=== PATIENT | female | born 1945 | race Caucasian/White ===

== ENCOUNTER 2017-06-27 22:06 | Inpatient (IN) | payer MEDICARE ==
[~2017-06-27] VITALS: Ht 160 cm; Wt 73.0 kg
[~2017-06-27 22:06] MED LIST: AMIT25TA PO; CYAN25009 PO; LISI-167 PO; MELA3TAB15 PO
[2017-06-27] MEDS ORDERED: FAMOTIDINE 20 MG/2 ML ONE (22:54)
[2017-06-27] MEDS ORDERED: PANTOPRAZOLE 40 MG IV ONE (22:54)
[2017-06-27] MEDS ORDERED: FAMOTIDINE 20 MG/2 ML IVPush ONE (23:00)
[2017-06-27] MEDS ORDERED: PANTOPRAZOLE 40 MG IV IVPush ONE (23:00)
[2017-06-27] MEDS ORDERED: OMNIPAQUE 350 MG/ML, 100ML BOTTLE ONE (23:22)
[2017-06-28] MEDS ORDERED: BENZOCAINE AEROSOL SPRAY 20%, 60ML ONE (01:15)
[2017-06-28] MEDS ORDERED: MORPHINE SULFATE 4 MG/ML, 1ML ONE (01:15)
[2017-06-28] MEDS ORDERED: BENZOCAINE 20% SPRAY 0.5ML TP ONE (01:30)
[2017-06-28] MEDS ORDERED: MORPHINE SULFATE 4 MG/ML, 1ML IVPush ONE (01:30)
[2017-06-28] MEDS ORDERED: D5%-0.45NACL+KCL 20MEQ 1,000 ML IV SCH (02:00)
[2017-06-28] MEDS ORDERED: DOCUSATE 100 MG CAPSULE PO PRN (05:30)
[2017-06-28] MEDS ORDERED: BISACODYL 10 MG SUPP PR PRN (05:30)
[2017-06-28] MEDS ORDERED: PROMETHAZINE 25 MG/ML, 1ML IM PRN (05:30)
[2017-06-28] MEDS ORDERED: morphine SULFATE 10 MG/ML, 1ML IVPush PRN (05:30)
[2017-06-28] MEDS ORDERED: POLYETHYLENE GLYCOL 17 GM PACKET PO PRN (05:30)
[2017-06-28] MEDS ORDERED: OXYcodone IR 5MG TABLET PO PRN (05:30)
[2017-06-28] MEDS ORDERED: LABETALOL 5MG/ML, 20ML IVPush PRN (05:30)
[2017-06-28] MEDS ORDERED: ONDANSETRON 2MG/ML, 2ML IVPush PRN (05:30)
[2017-06-28] MEDS ORDERED: ACETAMINOPHEN 325 MG TABLET PO PRN (05:30)
[2017-06-28] MEDS ORDERED: hydrALAzine 20 MG/ML, 1ML IVPush PRN (05:30)
[2017-06-28] MEDS ORDERED: ONDANSETRON ODT 4 MG PO PRN (05:30)
[2017-06-28 06:29] LABS: BASOPHILS # (AUTO) 0.02 x10^3/uL (0-0.1); BASOPHILS % (AUTO) 0 % (0-1); EOSINOPHILS # (AUTO) 0.07 x10^3/uL (0-0.4); EOSINOPHILS % (AUTO) 1 % (1-7); LYMPHOCYTES # (AUTO) 0.65 x10^3/uL (1-3.4); LYMPHOCYTES % (AUTO) 9 % (22-44); MD NO; MEAN CORPUSCULAR HEMOGLOBIN 27.8 pg (27.0-34.8); MEAN CORPUSCULAR HGB CONC 33.3 g/dL (32.4-35.8); MEAN CORPUSCULAR VOLUME 83.5 fL (80-100); MEAN PLATELET VOLUME 6.5 fL (7.4-10.4); MONOCYTES # (AUTO) 0.71 x10^3/uL (0.2-0.8); MONOCYTES % (AUTO) 9 % (2-9); NEUTROPHILS # (AUTO) 6.13 x10^3/uL (1.8-6.8); NEUTROPHILS % (AUTO) 81 % (42-75); PLATELET COUNT 512 x10^3/uL (130-400); RED BLOOD COUNT 4.47 x10^6/uL (3.82-5.3); RED CELL DISTRIBUTION WIDTH 14.8 % (9.6-15.2)
[2017-06-28 06:31] LABS: ALBUMIN 1.5 g/dL (3.4-5.0); ANION GAP 7 mmol/L (5-15); CALCIUM 7.9 mg/dL (8.5-10.1); CHLORIDE 108 mmol/L (98-107)
[2017-06-28 06:45] LABS: ALANINE AMINOTRANSFERASE 13 U/L (12-78); ALKALINE PHOSPHATASE 62 U/L (45-117); BILIRUBIN,TOTAL 0.5 mg/dL (0.2-1.0); FREE T4 (FREE THYROXINE) 1.39 ng/dL (0.76-1.46); TOTAL PROTEIN 4.9 g/dL (6.4-8.2)
[2017-06-28 06:55] VITALS: BP 112/74
[2017-06-28] MEDS: D5%-0.9% NACL+KCL 20MEQ 1,000 ML IV SCH ×2 (08:00→16:41)
[2017-06-28] MEDS: FAMOTIDINE 20 MG/2 ML IVPush SCH ×2 (09:00→19:15)
[2017-06-28 12:55] LABS: HCT (SEDRATE) 37.9 % (34.6-47.8)
[2017-06-28 13:13] LABS: C-REACTIVE PROTEIN, QUANT 2.5 mg/dL (0.02-0.49)
[2017-06-28 13:57] VITALS: BP 110/71
[2017-06-28] MEDS: PANTOPRAZOLE 40 MG IV IVPush SCH (15:30)
[2017-06-28] MEDS: HEPARIN 5,000 UNITS/ML, 1ML SQ SCH (15:44)
[2017-06-28 16:21] LABS: MICROSCOPIC AUTO
[2017-06-28 16:26] LABS: CULTURE INDICATED? YES
[2017-06-28] MEDS: methylPREDNISolone SOD SUCC 40 MG/ML IV SCH (19:29)
[2017-06-28 19:39] VITALS: BP 123/78
[2017-06-29 02:20] VITALS: BP 118/80
[2017-06-29] MEDS: D5%-0.9% NACL+KCL 20MEQ 1,000 ML IV SCH ×2 (02:41→10:44)
[2017-06-29] MEDS: HEPARIN 5,000 UNITS/ML, 1ML SQ SCH ×2 (04:07→15:13)
[2017-06-29 05:13] LABS: CHOL/HDL RATIO 1.5; LDL/HDL RATIO 0.3 (0.5-3.0)
[2017-06-29 07:45] VITALS: BP 113/75
[2017-06-29] MEDS: PANTOPRAZOLE 40 MG IV IVPush SCH (07:59)
[2017-06-29] MEDS: methylPREDNISolone SOD SUCC 40 MG/ML IV SCH (08:00)
[2017-06-29] MEDS: FAMOTIDINE 20 MG/2 ML IVPush SCH ×2 (08:00→21:17)
[2017-06-29] MEDS ORDERED: methylPREDNISolone SOD SUCC 40 MG/ML IV SCH (09:00)
[2017-06-29 14:09] VITALS: BP 109/73
[2017-06-29 19:00] VITALS: BP 135/82
[2017-06-29] MEDS: D5%-0.45% NACL 1,000 ML IV SCH (22:09)
[2017-06-30 01:58] VITALS: BP 104/63
[2017-06-30] MEDS: HEPARIN 5,000 UNITS/ML, 1ML SQ SCH ×2 (03:26→15:56)
[2017-06-30 06:30] VITALS: BP 111/72
[2017-06-30] MEDS: PANTOPRAZOLE 40 MG IV IVPush SCH (07:50)
[2017-06-30] MEDS: methylPREDNISolone SOD SUCC 40 MG/ML IV SCH (09:42)
[2017-06-30] MEDS: FAMOTIDINE 20 MG/2 ML IVPush SCH ×2 (09:42→20:51)
[2017-06-30] MEDS: D5%-0.45% NACL 1,000 ML IV SCH ×2 (10:36→20:51)
[2017-06-30 14:00] VITALS: BP 132/86
[2017-06-30 19:06] VITALS: BP 129/79
[2017-07-01 01:35] VITALS: BP 120/77
[2017-07-01] MEDS: D5%-0.45% NACL 1,000 ML IV SCH ×2 (04:15→11:44)
[2017-07-01] MEDS: HEPARIN 5,000 UNITS/ML, 1ML SQ SCH ×2 (04:15→16:12)
[2017-07-01 06:44] VITALS: BP 135/76
[2017-07-01] MEDS: PANTOPRAZOLE 40 MG IV IVPush SCH (07:54)
[2017-07-01] MEDS: FAMOTIDINE 20 MG/2 ML IVPush SCH (07:54)
[2017-07-01 14:30] VITALS: BP 120/71
[2017-07-01] MEDS: FAMOTIDINE 20 MG TABLET PO SCH (19:51)
[2017-07-01 20:36] VITALS: BP 125/77
[2017-07-02] MEDS: D5%-0.45% NACL 1,000 ML IV SCH (00:33)
[2017-07-02 02:27] VITALS: BP 116/69
[2017-07-02] MEDS: HEPARIN 5,000 UNITS/ML, 1ML SQ SCH (04:47)
[2017-07-02] MEDS ORDERED: PANTOPROZOLE 40MG TABLET PO SCH (07:30)
[2017-07-02] MEDS: FAMOTIDINE 20 MG TABLET PO SCH (08:42)
[2017-07-02 08:54] VITALS: BP 131/81
[2017-07-02] MEDS ORDERED: PRED20TA PO (10:48)
[2017-07-02 11:37] LABS: ANION GAP 8 mmol/L (5-15); CALCIUM 8.3 mg/dL (8.5-10.1); CHLORIDE 111 mmol/L (98-107); CREATININE 0.82 mg/dL (0.55-1.02)
[2017-07-02] MEDS ORDERED: POTASSIUM CHLORIDE 20 MEQ PACKET PO ONE (12:30)
[2017-07-02] MEDS ORDERED: POTA20PA25 PO (12:40)
[2017-07-02 13:35] VITALS: BP_SYST 130; BP_DIAS 62; BP_DIAS 82
[2017-07-03] MEDS ORDERED: POTASSIUM CHLORIDE 20 MEQ PACKET PO SCH (08:00)
== END 2017-07-02 13:43 | disposition home or self-care (01) | DRG 385 ==
LOC: ED 23:44 → EDIP 06-28 01:31 → 4NOR 06-28 02:20
PROVIDERS: ADMIT Internal Medicine; ATTEND Internal Medicine
DX: K50.00 Crohn's disease of small intestine without complications (principal); E43 Unspecified severe protein-calorie malnutrition; K56.609 Unspecified intestinal obstruction, unspecified as to partial versus complete obstruction; I27.21 Secondary pulmonary arterial hypertension; B96.81 Helicobacter pylori [H. pylori] as the cause of diseases classified elsewhere; E53.8 Deficiency of other specified B group vitamins; I10 Essential (primary) hypertension; J45.909 Unspecified asthma, uncomplicated; Z85.028 Personal history of other malignant neoplasm of stomach; Z87.891 Personal history of nicotine dependence; Z90.49 Acquired absence of other specified parts of digestive tract; Z88.8 Allergy status to other drugs, medicaments and biological substances; Z68.28 Body mass index [BMI] 28.0-28.9, adult
CPT/HCPCS: 36415; 74018; 74177; 80048; 80053; 80061; 81001; 82728; 83036; 83540; 83550; 83605; 83735; 84439; 84443; 84630; 85025; 85651; 86140; 86480; 86701; 86702; 87040; 87077; 87086; 87147; 87186; 87340; 87517; 87535; 87806; 96374; 96375; J1644; Q9967; C9113; G0475; J2270; J2920; J3480; J7512; S0028

== ENCOUNTER 2017-10-05 01:26 | Inpatient (IN) | payer MEDICARE ==
[~2017-10-05] VITALS: Ht 157.5 cm; Wt 68.0 kg
[~2017-10-05 01:26] MED LIST changes: +POTA20PA25 PO; +PRED20TA PO
[2017-10-05 03:30] VITALS: BP 126/77
[2017-10-05] MEDS ORDERED: hydrALAzine 20 MG/ML, 1ML IVPush PRN (05:00)
[2017-10-05] MEDS ORDERED: ONDANSETRON 2MG/ML, 2ML IVPush PRN (05:00)
[2017-10-05] MEDS ORDERED: OXYcodone IR 5MG TABLET PO PRN (05:00)
[2017-10-05] MEDS ORDERED: ACETAMINOPHEN 325 MG TABLET PO PRN (05:00)
[2017-10-05] MEDS ORDERED: ONDANSETRON ODT 4 MG PO PRN (05:00)
[2017-10-05] MEDS ORDERED: LABETALOL 5MG/ML, 20ML IVPush PRN (05:00)
[2017-10-05] MEDS ORDERED: PROMETHAZINE 25 MG/ML, 1ML IM PRN (05:00)
[2017-10-05] MEDS ORDERED: morphine SULFATE 10 MG/ML, 1ML IVPush PRN (05:00)
[2017-10-05] MEDS ORDERED: methylPREDNISolone SOD SUCC 40 MG/ML IV SCH (05:30)
[2017-10-05] MEDS: D5%-0.9% NACL+KCL 20MEQ 1,000 ML IV SCH ×2 (05:41→17:16)
[2017-10-05 06:27] LABS: BASOPHILS # (AUTO) 0.03 x10^3/uL (0-0.1); BASOPHILS % (AUTO) 0 % (0-1); EOSINOPHILS # (AUTO) 0.03 x10^3/uL (0-0.4); EOSINOPHILS % (AUTO) 0 % (1-7); LYMPHOCYTES # (AUTO) 0.92 x10^3/uL (1-3.4); LYMPHOCYTES % (AUTO) 14 % (22-44); MD NO; MEAN CORPUSCULAR HEMOGLOBIN 27.9 pg (27.0-34.8); MEAN CORPUSCULAR HGB CONC 33.6 g/dL (32.4-35.8); MEAN CORPUSCULAR VOLUME 83.1 fL (80-100); MEAN PLATELET VOLUME 6.8 fL (7.4-10.4); MONOCYTES # (AUTO) 0.63 x10^3/uL (0.2-0.8); MONOCYTES % (AUTO) 9 % (2-9); NEUTROPHILS # (AUTO) 5.16 x10^3/uL (1.8-6.8); NEUTROPHILS % (AUTO) 76 % (42-75); PLATELET COUNT 432 x10^3/uL (130-400); RED BLOOD COUNT 4.66 x10^6/uL (3.82-5.3); RED CELL DISTRIBUTION WIDTH 16.4 % (9.6-15.2)
[2017-10-05 06:28] LABS: HCT (SEDRATE) 36.9 % (34.6-47.8)
[2017-10-05 06:36] LABS: INTERNATIONAL NORMALIZED RATIO 0.96 (0.93-1.1); PROTHROMBIN TIME 9.9 Seconds (9.6-11.5)
[2017-10-05 06:50] LABS: HEMOGLOBIN A1C 5.1 % (4.2-6.3)
[2017-10-05 06:54] LABS: ALKALINE PHOSPHATASE 75 U/L (45-117); BILIRUBIN,TOTAL 0.5 mg/dL (0.2-1.0); CHOL/HDL RATIO 1.7; CHOLESTEROL, TOTAL 138 mg/dL (140-239); FREE T4 (FREE THYROXINE) 1.38 ng/dL (0.76-1.46); HDL CHOL % 59 % (28-40); HDL CHOLESTEROL (DIRECT) 81 mg/dL (40-60); LDL CHOLESTEROL,CALCULATED 44 mg/dL (54-169); LDL/HDL RATIO 0.5 (0.5-3.0); TOTAL PROTEIN 5.6 g/dL (6.4-8.2); TRIGLYCERIDES 65 mg/dL (50-200); VLDL CHOLESTEROL 13 mg/dL (0-25)
[2017-10-05 06:55] LABS: ANION GAP 6 mmol/L (5-15); CALCIUM 8.4 mg/dL (8.5-10.1); CHLORIDE 105 mmol/L (98-107)
[2017-10-05 06:56] LABS: ALANINE AMINOTRANSFERASE 35 U/L (12-78)
[2017-10-05 06:57] LABS: ALBUMIN 2.2 g/dL (3.4-5.0)
[2017-10-05 07:08] VITALS: BP 120/78
[2017-10-05] MEDS: FAMOTIDINE 20 MG/2 ML IVPush SCH ×2 (08:39→22:02)
[2017-10-05 08:41] LABS: CULTURE INDICATED? NO; MICROSCOPIC AUTO
[2017-10-05 13:01] VITALS: BP 110/71
[2017-10-05] MEDS: methylPREDNISolone SOD SUCC 40 MG/ML IV SCH ×2 (17:23→22:08)
[2017-10-05] MEDS ORDERED: PICC FLUSH PROTOCOL XX SCH (17:30)
[2017-10-05] MEDS ORDERED: TPN PER PHARMACY MC PRN (17:30)
[2017-10-05 19:50] VITALS: BP 117/73
[2017-10-06] MEDS: D5%-0.9% NACL+KCL 20MEQ 1,000 ML IV SCH ×2 (01:32→05:00)
[2017-10-06 02:00] VITALS: BP 112/70
[2017-10-06 06:30] LABS: ALANINE AMINOTRANSFERASE 23 U/L (12-78); ALBUMIN 1.9 g/dL (3.4-5.0); ANION GAP 7 mmol/L (5-15); CALCIUM 8.1 mg/dL (8.5-10.1); CHLORIDE 115 mmol/L (98-107); CREATININE 0.59 mg/dL (0.55-1.02); TRIGLYCERIDES 73 mg/dL (50-200)
[2017-10-06 06:34] LABS: ALKALINE PHOSPHATASE 61 U/L (45-117); BILIRUBIN,TOTAL 0.5 mg/dL (0.2-1.0); TOTAL PROTEIN 4.9 g/dL (6.4-8.2)
[2017-10-06 07:14] VITALS: BP 122/75
[2017-10-06] MEDS: FAMOTIDINE 20 MG/2 ML IVPush SCH (08:33)
[2017-10-06] MEDS: methylPREDNISolone SOD SUCC 40 MG/ML IV SCH ×3 (08:33→20:50)
[2017-10-06] MEDS ORDERED: NS + 20MEQ KCL 1,000 ML IV SCH (10:00)
[2017-10-06 12:39] VITALS: BP 113/68
[2017-10-06] MEDS ORDERED: DEXTROSE 50%, 50ML SYRINGE IVPush PRN (17:00)
[2017-10-06] MEDS ORDERED: AMINO ACID 10% IV SCH (17:00)
[2017-10-06] MEDS ORDERED: DEXTROSE 10% 500 ML IV PRN (17:00)
[2017-10-06] MEDS ORDERED: DEXTROSE 70% IV SCH (17:00)
[2017-10-06] MEDS ORDERED: FAT EMUL IV SCH (17:00)
[2017-10-06] MEDS ORDERED: [UNRECOGNIZED DRUG - OTHER] IV SCH (17:00)
[2017-10-06] MEDS ORDERED: SMOF TPN IV SCH (17:00)
[2017-10-06] MEDS: SODIUM CHLORIDE 0.9% 1,000 ML IV SCH (17:10)
[2017-10-06] MEDS: FILTER, DISP 1.2 MICRON FOR TPN/PVN IV PRN (17:10)
[2017-10-06 20:00] VITALS: BP 134/83
[2017-10-06] MEDS: INSULIN REGULAR LOW DOSE Q6H X 48HRS SQ-INSULIN SCH (23:00)
[2017-10-07 04:42] VITALS: BP 134/76
[2017-10-07] MEDS: INSULIN REGULAR LOW DOSE Q6H X 48HRS SQ-INSULIN SCH ×4 (05:00→23:00)
[2017-10-07] MEDS: SODIUM CHLORIDE 0.9% 1,000 ML IV SCH ×2 (05:07→16:34)
[2017-10-07 05:34] LABS: ALBUMIN 1.8 g/dL (3.4-5.0); ANION GAP 7 mmol/L (5-15); CALCIUM 8.2 mg/dL (8.5-10.1); CHLORIDE 114 mmol/L (98-107)
[2017-10-07 05:39] LABS: ALANINE AMINOTRANSFERASE 19 U/L (12-78); ALKALINE PHOSPHATASE 58 U/L (45-117); BILIRUBIN,TOTAL 0.3 mg/dL (0.2-1.0); CREATININE 0.44 mg/dL (0.55-1.02); TOTAL PROTEIN 4.8 g/dL (6.4-8.2)
[2017-10-07 07:45] VITALS: BP 131/74
[2017-10-07] MEDS: methylPREDNISolone SOD SUCC 40 MG/ML IV SCH ×3 (10:04→21:04)
[2017-10-07 13:30] VITALS: BP 124/75
[2017-10-07] MEDS: FILTER, DISP 1.2 MICRON FOR TPN/PVN IV PRN (16:49)
[2017-10-07] MEDS ORDERED: [UNRECOGNIZED DRUG - OTHER] IV SCH (17:00)
[2017-10-07] MEDS ORDERED: SMOF TPN IV SCH (17:00)
[2017-10-07] MEDS ORDERED: AMINO ACID 10% IV SCH (17:00)
[2017-10-07] MEDS ORDERED: FAT EMUL IV SCH (17:00)
[2017-10-07] MEDS ORDERED: DEXTROSE 70% IV SCH (17:00)
[2017-10-07 19:08] VITALS: BP 123/78
[2017-10-08 01:54] VITALS: BP 123/82
[2017-10-08] MEDS: INSULIN REGULAR LOW DOSE Q6H X 48HRS SQ-INSULIN SCH ×3 (04:58→17:47)
[2017-10-08 05:45] LABS: CHLORIDE 112 mmol/L (98-107)
[2017-10-08 05:53] LABS: ANION GAP 6 mmol/L (5-15); CALCIUM 8.3 mg/dL (8.5-10.1); CREATININE 0.32 mg/dL (0.55-1.02)
[2017-10-08 06:56] VITALS: BP 137/85
[2017-10-08] MEDS: methylPREDNISolone SOD SUCC 40 MG/ML IV SCH ×3 (09:57→20:48)
[2017-10-08 12:57] VITALS: BP 121/83
[2017-10-08] MEDS: SODIUM CHLORIDE 0.9% 1,000 ML IV SCH (15:18)
[2017-10-08] MEDS ORDERED: FILTER, DISP 1.2 MICRON FOR TPN/PVN IV PRN (17:00)
[2017-10-08] MEDS ORDERED: FAT EMUL IV SCH (17:00)
[2017-10-08] MEDS ORDERED: AMINO ACID 10% IV SCH (17:00)
[2017-10-08] MEDS ORDERED: [UNRECOGNIZED DRUG - OTHER] IV SCH (17:00)
[2017-10-08] MEDS ORDERED: DEXTROSE 70% IV SCH (17:00)
[2017-10-08] MEDS ORDERED: SMOF TPN IV SCH (17:00)
[2017-10-08 19:35] VITALS: BP 145/92
[2017-10-09 02:00] VITALS: BP 121/78
[2017-10-09] MEDS: INSULIN REGULAR LOW DOSE QDAY SQ-INSULIN SCH (05:00)
[2017-10-09 06:03] LABS: BASOPHILS # (AUTO) 0.01 x10^3/uL (0-0.1); BASOPHILS % (AUTO) 0 % (0-1); EOSINOPHILS # (AUTO) 0.01 x10^3/uL (0-0.4); EOSINOPHILS % (AUTO) 0 % (1-7); LYMPHOCYTES # (AUTO) 0.74 x10^3/uL (1-3.4); LYMPHOCYTES % (AUTO) 16 % (22-44); MD NO; MEAN CORPUSCULAR HEMOGLOBIN 28.2 pg (27.0-34.8); MEAN CORPUSCULAR HGB CONC 33.4 g/dL (32.4-35.8); MEAN CORPUSCULAR VOLUME 84.5 fL (80-100); MONOCYTES # (AUTO) 0.57 x10^3/uL (0.2-0.8); MONOCYTES % (AUTO) 12 % (2-9); NEUTROPHILS # (AUTO) 3.34 x10^3/uL (1.8-6.8); NEUTROPHILS % (AUTO) 71 % (42-75); PLATELET COUNT 348 x10^3/uL (130-400); RED BLOOD COUNT 3.97 x10^6/uL (3.82-5.3); RED CELL DISTRIBUTION WIDTH 15.2 % (9.6-15.2)
[2017-10-09 06:22] LABS: CHLORIDE 112 mmol/L (98-107)
[2017-10-09 06:40] LABS: ALANINE AMINOTRANSFERASE 17 U/L (12-78); ALBUMIN 1.9 g/dL (3.4-5.0); ALKALINE PHOSPHATASE 59 U/L (45-117); ANION GAP 7 mmol/L (5-15); BILIRUBIN,TOTAL 0.2 mg/dL (0.2-1.0); CALCIUM 8.2 mg/dL (8.5-10.1); CREATININE 0.43 mg/dL (0.55-1.02); TOTAL PROTEIN 4.9 g/dL (6.4-8.2)
[2017-10-09 06:59] VITALS: BP 156/84
[2017-10-09] MEDS: methylPREDNISolone SOD SUCC 40 MG/ML IV SCH ×3 (09:12→21:49)
[2017-10-09 13:14] VITALS: BP 131/80
[2017-10-09] MEDS: SODIUM CHLORIDE 0.9% 1,000 ML IV SCH (15:30)
[2017-10-09] MEDS ORDERED: AMINO ACID 10% IV SCH (17:00)
[2017-10-09] MEDS ORDERED: DEXTROSE 70% IV SCH (17:00)
[2017-10-09] MEDS ORDERED: FAT EMUL IV SCH (17:00)
[2017-10-09] MEDS ORDERED: SMOF TPN IV SCH (17:00)
[2017-10-09] MEDS ORDERED: [UNRECOGNIZED DRUG - OTHER] IV SCH (17:00)
[2017-10-09] MEDS: FILTER, DISP 1.2 MICRON FOR TPN/PVN IV PRN (17:23)
[2017-10-09 18:53] VITALS: BP 130/85
[2017-10-10 02:20] VITALS: BP 113/72
[2017-10-10 07:25] LABS: BASOPHILS # (AUTO) 0.01 x10^3/uL (0-0.1); BASOPHILS % (AUTO) 0 % (0-1); EOSINOPHILS # (AUTO) 0.02 x10^3/uL (0-0.4); EOSINOPHILS % (AUTO) 0 % (1-7); LYMPHOCYTES # (AUTO) 0.72 x10^3/uL (1-3.4); LYMPHOCYTES % (AUTO) 13 % (22-44); MD NO; MEAN CORPUSCULAR HEMOGLOBIN 28.1 pg (27.0-34.8); MEAN PLATELET VOLUME 6.9 fL (7.4-10.4); MONOCYTES # (AUTO) 0.44 x10^3/uL (0.2-0.8); MONOCYTES % (AUTO) 8 % (2-9); NEUTROPHILS # (AUTO) 4.53 x10^3/uL (1.8-6.8); NEUTROPHILS % (AUTO) 79 % (42-75); PLATELET COUNT 390 x10^3/uL (130-400); RED BLOOD COUNT 4.34 x10^6/uL (3.82-5.3); RED CELL DISTRIBUTION WIDTH 15.2 % (9.6-15.2)
[2017-10-10 07:38] LABS: CALCIUM 8.5 mg/dL (8.5-10.1); CHLORIDE 111 mmol/L (98-107)
[2017-10-10 07:44] LABS: ALANINE AMINOTRANSFERASE 19 U/L (12-78); ALBUMIN 2.1 g/dL (3.4-5.0); ALKALINE PHOSPHATASE 65 U/L (45-117); ANION GAP 7 mmol/L (5-15); BILIRUBIN,TOTAL 0.2 mg/dL (0.2-1.0); CREATININE 0.48 mg/dL (0.55-1.02); TOTAL PROTEIN 5.4 g/dL (6.4-8.2); TRIGLYCERIDES 203 mg/dL (50-200)
[2017-10-10] MEDS: INSULIN REGULAR LOW DOSE QDAY SQ-INSULIN SCH (07:51)
[2017-10-10 09:00] VITALS: BP 128/74
[2017-10-10] MEDS: methylPREDNISolone SOD SUCC 40 MG/ML IV SCH (09:50)
[2017-10-10 14:01] VITALS: BP 132/91
[2017-10-10] MEDS: SODIUM CHLORIDE 0.9% 1,000 ML IV SCH (14:55)
[2017-10-10] MEDS ORDERED: SMOF TPN IV SCH ×2 (17:00)
[2017-10-10] MEDS ORDERED: AMINO ACID 10% IV SCH ×2 (17:00)
[2017-10-10] MEDS ORDERED: FAT EMUL IV SCH ×2 (17:00)
[2017-10-10] MEDS ORDERED: [UNRECOGNIZED DRUG - OTHER] IV SCH ×2 (17:00)
[2017-10-10] MEDS ORDERED: DEXTROSE 70% IV SCH ×2 (17:00)
[2017-10-10] MEDS: FILTER, DISP 1.2 MICRON FOR TPN/PVN IV PRN (17:22)
[2017-10-10 19:09] VITALS: BP 131/81
[2017-10-10] MEDS ORDERED: methylPREDNISolone SOD SUCC 40 MG/ML IV SCH (21:00)
[2017-10-11 02:38] VITALS: BP 116/65
[2017-10-11] MEDS: INSULIN REGULAR LOW DOSE QDAY SQ-INSULIN SCH (05:00)
[2017-10-11 05:15] LABS: BASOPHILS # (AUTO) 0.02 x10^3/uL (0-0.1); BASOPHILS % (AUTO) 0 % (0-1); EOSINOPHILS % (AUTO) 0 % (1-7); LYMPHOCYTES % (AUTO) 12 % (22-44); MD NO; MEAN CORPUSCULAR HEMOGLOBIN 27.8 pg (27.0-34.8); MEAN CORPUSCULAR HGB CONC 32.9 g/dL (32.4-35.8); MEAN CORPUSCULAR VOLUME 84.6 fL (80-100); MONOCYTES # (AUTO) 0.34 x10^3/uL (0.2-0.8); MONOCYTES % (AUTO) 6 % (2-9); NEUTROPHILS # (AUTO) 4.85 x10^3/uL (1.8-6.8); NEUTROPHILS % (AUTO) 82 % (42-75); PLATELET COUNT 399 x10^3/uL (130-400); RED BLOOD COUNT 4.52 x10^6/uL (3.82-5.3); RED CELL DISTRIBUTION WIDTH 15.3 % (9.6-15.2)
[2017-10-11 05:19] LABS: ALANINE AMINOTRANSFERASE 37 U/L (12-78); ALBUMIN 2.2 g/dL (3.4-5.0); ANION GAP 4 mmol/L (5-15); CALCIUM 8.8 mg/dL (8.5-10.1); CHLORIDE 112 mmol/L (98-107); CREATININE 0.53 mg/dL (0.55-1.02)
[2017-10-11 05:21] LABS: ALKALINE PHOSPHATASE 71 U/L (45-117); BILIRUBIN,TOTAL 0.2 mg/dL (0.2-1.0); TOTAL PROTEIN 5.7 g/dL (6.4-8.2)
[2017-10-11] MEDS: methylPREDNISolone SOD SUCC 40 MG/ML IV SCH (09:29)
[2017-10-11 14:03] VITALS: BP 146/94
[2017-10-11] MEDS: SODIUM CHLORIDE 0.9% 1,000 ML IV SCH (14:39)
[2017-10-11] MEDS ORDERED: SMOF TPN IV SCH (17:00)
[2017-10-11] MEDS ORDERED: AMINO ACID 10% IV SCH (17:00)
[2017-10-11] MEDS ORDERED: [UNRECOGNIZED DRUG - OTHER] IV SCH (17:00)
[2017-10-11] MEDS ORDERED: FAT EMUL IV SCH (17:00)
[2017-10-11] MEDS ORDERED: DEXTROSE 70% IV SCH (17:00)
[2017-10-11 20:02] VITALS: BP 130/83
[2017-10-11] MEDS ORDERED: CALCIUM CARBONATE 500 MG TAB.CHEW PO PRN (21:30)
[2017-10-12 04:28] VITALS: BP 123/75
[2017-10-12] MEDS: INSULIN REGULAR LOW DOSE QDAY SQ-INSULIN SCH (05:30)
[2017-10-12 06:29] LABS: ANION GAP 7 mmol/L (5-15); CALCIUM 8.8 mg/dL (8.5-10.1); CHLORIDE 108 mmol/L (98-107); CREATININE 0.59 mg/dL (0.55-1.02)
[2017-10-12 07:15] VITALS: BP 111/72
[2017-10-12] MEDS: methylPREDNISolone SOD SUCC 40 MG/ML IV SCH (08:21)
[2017-10-12 08:36] LABS: BASOPHILS # (AUTO) 0.02 x10^3/uL (0-0.1); BASOPHILS % (AUTO) 0 % (0-1); EOSINOPHILS # (AUTO) 0.06 x10^3/uL (0-0.4); EOSINOPHILS % (AUTO) 1 % (1-7); LYMPHOCYTES # (AUTO) 0.89 x10^3/uL (1-3.4); LYMPHOCYTES % (AUTO) 11 % (22-44); MD NO; MEAN CORPUSCULAR HEMOGLOBIN 27.5 pg (27.0-34.8); MEAN CORPUSCULAR HGB CONC 32.5 g/dL (32.4-35.8); MEAN CORPUSCULAR VOLUME 84.4 fL (80-100); MEAN PLATELET VOLUME 6.8 fL (7.4-10.4); MONOCYTES # (AUTO) 0.77 x10^3/uL (0.2-0.8); MONOCYTES % (AUTO) 10 % (2-9); NEUTROPHILS # (AUTO) 6.22 x10^3/uL (1.8-6.8); NEUTROPHILS % (AUTO) 78 % (42-75); PLATELET COUNT 377 x10^3/uL (130-400); RED BLOOD COUNT 4.38 x10^6/uL (3.82-5.3); RED CELL DISTRIBUTION WIDTH 15.4 % (9.6-15.2)
[2017-10-12 08:47] LABS: ALANINE AMINOTRANSFERASE 69 U/L (12-78); ALBUMIN 2.1 g/dL (3.4-5.0); ANION GAP 8 mmol/L (5-15); CALCIUM 8.6 mg/dL (8.5-10.1); CHLORIDE 106 mmol/L (98-107); CREATININE 0.57 mg/dL (0.55-1.02)
[2017-10-12 08:49] LABS: ALKALINE PHOSPHATASE 72 U/L (45-117); BILIRUBIN,TOTAL 0.3 mg/dL (0.2-1.0); TOTAL PROTEIN 5.2 g/dL (6.4-8.2)
[2017-10-12 13:38] VITALS: BP 112/73
[2017-10-12] MEDS: SODIUM CHLORIDE 0.9% 1,000 ML IV SCH (14:54)
[2017-10-12] MEDS ORDERED: MORP10VI10 IVPush (15:04)
[2017-10-12] MEDS ORDERED: METH40VI IV (15:04)
[2017-10-12] MEDS ORDERED: Tpn Per Pharmacy MC (15:04)
[2017-10-12] MEDS ORDERED: ONDA4VIA8 IVPush (15:04)
[2017-10-12] MEDS ORDERED: AMINO ACID 10% IV SCH (17:00)
[2017-10-12] MEDS ORDERED: DEXTROSE 70% IV SCH (17:00)
[2017-10-12] MEDS ORDERED: FILTER, DISP 1.2 MICRON FOR TPN/PVN IV PRN (17:00)
[2017-10-12] MEDS ORDERED: [UNRECOGNIZED DRUG - OTHER] IV SCH (17:00)
[2017-10-12] MEDS ORDERED: SMOF TPN IV SCH (17:00)
[2017-10-12] MEDS ORDERED: FAT EMUL IV SCH (17:00)
[2017-10-13] MEDS ORDERED: methylPREDNISolone SOD SUCC 40 MG/ML IV SCH (09:00)
== END 2017-10-12 19:00 | DRG 385 ==
LOC: 4NOR 03:19
PROVIDERS: ADMIT Internal Medicine; ATTEND Internal Medicine
PROC: 02HV33Z Insertion of Infusion Device into Superior Vena Cava, Percutaneous Approach (ICD-10-PCS; principal; 2017-10-05)
PROC: B548ZZA Ultrasonography of Superior Vena Cava, Guidance (ICD-10-PCS; 2017-10-05)
DX: K50.012 Crohn's disease of small intestine with intestinal obstruction (principal); E43 Unspecified severe protein-calorie malnutrition; I10 Essential (primary) hypertension; J44.9 Chronic obstructive pulmonary disease, unspecified; K21.9 Gastro-esophageal reflux disease without esophagitis; R74.8 Abnormal levels of other serum enzymes; K52.9 Noninfective gastroenteritis and colitis, unspecified; Z90.49 Acquired absence of other specified parts of digestive tract; Z91.041 Radiographic dye allergy status; Z79.52 Long term (current) use of systemic steroids; Z85.028 Personal history of other malignant neoplasm of stomach; Z87.891 Personal history of nicotine dependence; Z68.27 Body mass index [BMI] 27.0-27.9, adult
CPT/HCPCS: 36415; 36569; 76937; 77001; 80048; 80053; 80061; 81001; 82962; 83036; 83735; 84100; 84134; 84439; 84443; 84478; 85025; 85610; 85651; 86140; 87040; 96374; G0378; J0610; J3475; J3480; C1751; J2920; J3420; J7030; S0028

== ENCOUNTER 2017-10-19 09:56 | Inpatient (IN) | payer MEDICARE ==
[~2017-10-19] VITALS: Ht 160 cm; Wt 65.5 kg
[~2017-10-19 09:56] MED LIST changes: +BUPIVACAINE/PF 0.5% ONE; +METH40VI IV; +MORP10VI10 IVPush; +ONDA4VIA8 IVPush; +Tpn Per Pharmacy MC; +cloniDINE/PF 100 MCG/ML, 10 ML ONE
[2017-10-19 10:32] VITALS: BP 118/83
[2017-10-19] MEDS ORDERED: LACTATED RINGERS 1,000 ML IV SCH (10:38)
[2017-10-19] MEDS ORDERED: remicade (10:41)
[2017-10-19] MEDS ORDERED: ONDANSETRON ODT 8 MG PO ONE (11:00)
[2017-10-19] MEDS ORDERED: GABAPENTIN 300 MG CAPSULE PO ONE (11:00)
[2017-10-19] MEDS ORDERED: PLEASE ENTER HEIGHT AND WEIGHT MC SCH (11:00)
[2017-10-19] MEDS ORDERED: ACETAMINOPHEN 500 MG TABLET PO ONE (11:00)
[2017-10-19] MEDS ORDERED: MIDAZOLAM 1 MG/ML, 2ML ONE (11:08)
[2017-10-19] MEDS ORDERED: FENTANYL PF 100 MCG/2ML ONE ×2 (11:08→13:47)
[2017-10-19] MEDS ORDERED: DIPHENHYDRAMINE 50 MG/ML, 1ML IVPush PRN ×2 (11:30→16:30)
[2017-10-19] MEDS ORDERED: EPHEDRINE 50 MG/ML, 1ML IM PRN (11:30)
[2017-10-19] MEDS ORDERED: PROMETHAZINE 12.5 MG SUPP PR PRN (11:30)
[2017-10-19] MEDS ORDERED: LABETALOL 5MG/ML, 20ML IV PRN (11:30)
[2017-10-19] MEDS ORDERED: MEPERIDINE/PF 25MG/0.5ML IVPush PRN (11:30)
[2017-10-19] MEDS ORDERED: CEFAZOLIN 1,000 MG ONE (11:45)
[2017-10-19] MEDS ORDERED: EPHEDRINE 50 MG/ML, 1ML ONE (11:45)
[2017-10-19] MEDS ORDERED: PROPOFOL 10 MG/ML, 20ML ONE (11:45)
[2017-10-19] MEDS ORDERED: PHENYLEPHRINE 10 MG/ML ONE (11:45)
[2017-10-19] MEDS ORDERED: DEXAMETHASONE 4 MG/ML, 5ML ONE (11:45)
[2017-10-19] MEDS ORDERED: ONDANSETRON 2MG/ML, 2ML ONE (11:45)
[2017-10-19] MEDS ORDERED: ROCURONIUM 10 MG/ML,10ML ONE (11:45)
[2017-10-19] MEDS ORDERED: SUGAMMADEX 200 MG/2 ML IVPush ONE (11:45)
[2017-10-19] MEDS ORDERED: ESMOLOL 100 MG/10 ML ONE (11:45)
[2017-10-19] MEDS: FENTANYL PF 100 MCG/2ML IV PRN ×2 (14:00→14:05)
[2017-10-19] MEDS ORDERED: OXYcodone 5 MG/5 ML ORAL.SOL UDC ONE (14:05)
[2017-10-19] MEDS ORDERED: OXYcodone 5 MG/5 ML ORAL.SOL UDC PO PRN (14:30)
[2017-10-19 15:45] VITALS: BP 117/71
[2017-10-19] MEDS ORDERED: LORazepam 1MG TABLET PO PRN (16:30)
[2017-10-19] MEDS ORDERED: ACETAMINOPHEN 500 MG TABLET PO SCH (16:30)
[2017-10-19] MEDS ORDERED: SCOPOLAMINE PATCH, 1.5MG PATCH.TD72 TD PRN (16:30)
[2017-10-19] MEDS ORDERED: HYDROmorphone 1 MG/ML, 1ML IVPush PRN (16:30)
[2017-10-19] MEDS ORDERED: LORazepam 2 MG/ML, 1ML IVPush PRN (16:30)
[2017-10-19] MEDS ORDERED: DEXAMETHASONE 4 MG/ML, 1ML IVPush PRN (16:30)
[2017-10-19] MEDS ORDERED: D5%-0.45NACL+KCL 20MEQ 1,000 ML IV SCH (16:30)
[2017-10-19] MEDS: ACETAMINOPHEN 100 ML IVPB SCH (18:20)
[2017-10-19 21:02] VITALS: BP 103/70
[2017-10-19] MEDS: IBUPROFEN 800 MG TABLET PO SCH (21:30)
[2017-10-20 00:40] VITALS: BP 90/51
[2017-10-20] MEDS: ACETAMINOPHEN 100 ML IVPB SCH ×3 (02:25→14:22)
[2017-10-20 03:57] LABS: BASOPHILS % (AUTO) 0 % (0-1); EOSINOPHILS % (AUTO) 0 % (1-7); LYMPHOCYTES # (AUTO) 0.62 x10^3/uL (1-3.4); LYMPHOCYTES % (AUTO) 5 % (22-44); MD NO; MEAN CORPUSCULAR HEMOGLOBIN 27.2 pg (27.0-34.8); MEAN CORPUSCULAR HGB CONC 32.6 g/dL (32.4-35.8); MEAN CORPUSCULAR VOLUME 83.4 fL (80-100); MEAN PLATELET VOLUME 8.3 fL (7.4-10.4); MONOCYTES # (AUTO) 0.75 x10^3/uL (0.2-0.8); MONOCYTES % (AUTO) 6 % (2-9); NEUTROPHILS # (AUTO) 11.33 x10^3/uL (1.8-6.8); NEUTROPHILS % (AUTO) 89 % (42-75); PLATELET COUNT 343 x10^3/uL (130-400); RED BLOOD COUNT 4.18 x10^6/uL (3.82-5.3)
[2017-10-20 04:21] VITALS: BP 100/65
[2017-10-20] MEDS: IBUPROFEN 800 MG TABLET PO SCH ×3 (08:59→20:41)
[2017-10-20 09:03] VITALS: BP 115/74
[2017-10-20] MEDS: HEPARIN 5,000 UNITS/ML, 1ML SQ SCH ×2 (11:56→20:41)
[2017-10-20 14:30] VITALS: BP 97/61
[2017-10-20] MEDS ORDERED: ACETAMINOPHEN 500 MG TABLET PO SCH (17:30)
[2017-10-20] MEDS: OXYcodone IR 5MG TABLET PO PRN (18:50)
[2017-10-20] MEDS: CALCIUM CARBONATE 500 MG TAB.CHEW PO PRN (20:40)
[2017-10-20] MEDS ORDERED: HYDROmorphone 2 MG/ML, 1ML ONE (20:57)
[2017-10-20 21:13] VITALS: BP 98/59
[2017-10-21 03:14] VITALS: BP 109/75
[2017-10-21] MEDS: HEPARIN 5,000 UNITS/ML, 1ML SQ SCH ×3 (03:30→20:50)
[2017-10-21 07:33] LABS: BASOPHILS # (AUTO) 0.04 x10^3/uL (0-0.1); BASOPHILS % (AUTO) 0 % (0-1); EOSINOPHILS # (AUTO) 0.04 x10^3/uL (0-0.4); EOSINOPHILS % (AUTO) 0 % (1-7); LYMPHOCYTES % (AUTO) 6 % (22-44); MD NO; MEAN CORPUSCULAR HEMOGLOBIN 27.3 pg (27.0-34.8); MEAN CORPUSCULAR HGB CONC 32.4 g/dL (32.4-35.8); MEAN CORPUSCULAR VOLUME 84.4 fL (80-100); MEAN PLATELET VOLUME 8.3 fL (7.4-10.4); MONOCYTES % (AUTO) 6 % (2-9); NEUTROPHILS # (AUTO) 8.95 x10^3/uL (1.8-6.8); NEUTROPHILS % (AUTO) 87 % (42-75); PLATELET COUNT 333 x10^3/uL (130-400); RED CELL DISTRIBUTION WIDTH 15.1 % (9.6-15.2)
[2017-10-21 07:39] LABS: ANION GAP 9 mmol/L (5-15); CALCIUM 9.7 mg/dL (8.5-10.1); CHLORIDE 103 mmol/L (98-107); CREATININE 0.79 mg/dL (0.55-1.02)
[2017-10-21 08:04] VITALS: BP 110/63
[2017-10-21] MEDS: IBUPROFEN 800 MG TABLET PO SCH ×3 (08:42→23:36)
[2017-10-21] MEDS: OXYcodone IR 5MG TABLET PO PRN ×3 (08:46→19:04)
[2017-10-21 13:21] VITALS: BP 111/69
[2017-10-21 21:34] VITALS: BP 100/54
[2017-10-22 01:05] VITALS: BP_SYST 96; BP_SYST 98; BP_DIAS 58; BP_DIAS 60
[2017-10-22] MEDS: HEPARIN 5,000 UNITS/ML, 1ML SQ SCH ×3 (04:41→19:18)
[2017-10-22] MEDS ORDERED: ONDANSETRON ODT 4 MG PO ONE (05:00)
[2017-10-22 06:25] LABS: BASOPHILS # (AUTO) 0.02 x10^3/uL (0-0.1); BASOPHILS % (AUTO) 0 % (0-1); EOSINOPHILS # (AUTO) 0.09 x10^3/uL (0-0.4); EOSINOPHILS % (AUTO) 1 % (1-7); LYMPHOCYTES # (AUTO) 0.43 x10^3/uL (1-3.4); LYMPHOCYTES % (AUTO) 4 % (22-44); MD NO; MEAN CORPUSCULAR HEMOGLOBIN 28.3 pg (27.0-34.8); MEAN CORPUSCULAR VOLUME 83.4 fL (80-100); MONOCYTES # (AUTO) 0.55 x10^3/uL (0.2-0.8); MONOCYTES % (AUTO) 5 % (2-9); NEUTROPHILS # (AUTO) 9.22 x10^3/uL (1.8-6.8); NEUTROPHILS % (AUTO) 90 % (42-75); PLATELET COUNT 352 x10^3/uL (130-400); RED BLOOD COUNT 3.94 x10^6/uL (3.82-5.3); RED CELL DISTRIBUTION WIDTH 14.9 % (9.6-15.2)
[2017-10-22 06:34] LABS: ANION GAP 10 mmol/L (5-15); CHLORIDE 102 mmol/L (98-107); CREATININE 1.04 mg/dL (0.55-1.02)
[2017-10-22 07:37] VITALS: BP 107/71
[2017-10-22] MEDS: IBUPROFEN 800 MG TABLET PO SCH ×3 (08:02→22:09)
[2017-10-22] MEDS: OXYcodone IR 5MG TABLET PO PRN ×5 (08:02→23:49)
[2017-10-22 14:57] VITALS: BP 95/68
[2017-10-22 20:19] VITALS: BP 98/64
[2017-10-22] MEDS: CALCIUM CARBONATE 500 MG TAB.CHEW PO PRN (22:11)
[2017-10-23 01:54] VITALS: BP 98/58
[2017-10-23] MEDS: ONDANSETRON 2MG/ML, 2ML IV PRN ×2 (03:21→13:00)
[2017-10-23] MEDS ORDERED: SODIUM CHLORIDE 0.9%, 500ML IVBOLUS ONE (03:30)
[2017-10-23] MEDS: SODIUM CHLORIDE 0.9% 1,000 ML IV SCH ×3 (03:49→22:41)
[2017-10-23] MEDS: HEPARIN 5,000 UNITS/ML, 1ML SQ SCH ×3 (04:08→20:37)
[2017-10-23 05:26] LABS: BASOPHILS # (AUTO) 0.03 x10^3/uL (0-0.1); BASOPHILS % (AUTO) 0 % (0-1); EOSINOPHILS # (AUTO) 0.09 x10^3/uL (0-0.4); EOSINOPHILS % (AUTO) 1 % (1-7); LYMPHOCYTES # (AUTO) 0.41 x10^3/uL (1-3.4); LYMPHOCYTES % (AUTO) 4 % (22-44); MD NO; MEAN CORPUSCULAR HEMOGLOBIN 27.9 pg (27.0-34.8); MEAN CORPUSCULAR HGB CONC 33.9 g/dL (32.4-35.8); MEAN CORPUSCULAR VOLUME 82.3 fL (80-100); MEAN PLATELET VOLUME 7.7 fL (7.4-10.4); MONOCYTES # (AUTO) 0.58 x10^3/uL (0.2-0.8); MONOCYTES % (AUTO) 6 % (2-9); NEUTROPHILS # (AUTO) 8.99 x10^3/uL (1.8-6.8); NEUTROPHILS % (AUTO) 89 % (42-75); PLATELET COUNT 387 x10^3/uL (130-400); RED BLOOD COUNT 3.81 x10^6/uL (3.82-5.3); RED CELL DISTRIBUTION WIDTH 14.7 % (9.6-15.2)
[2017-10-23 05:38] LABS: CHLORIDE 99 mmol/L (98-107)
[2017-10-23 05:47] LABS: ANION GAP 11 mmol/L (5-15); CALCIUM 9.6 mg/dL (8.5-10.1)
[2017-10-23 07:35] VITALS: BP 92/60
[2017-10-23] MEDS: IBUPROFEN 800 MG TABLET PO SCH ×3 (09:04→20:37)
[2017-10-23] MEDS: OXYcodone IR 5MG TABLET PO PRN (12:20)
[2017-10-23 14:00] VITALS: BP 100/58
[2017-10-23] MEDS: CALCIUM CARBONATE 500 MG TAB.CHEW PO PRN ×2 (15:46→22:40)
[2017-10-23 20:27] VITALS: BP 100/62
[2017-10-24 03:04] VITALS: BP 106/56
[2017-10-24 05:12] LABS: ANION GAP 8 mmol/L (5-15); CALCIUM 9.1 mg/dL (8.5-10.1); CHLORIDE 104 mmol/L (98-107)
[2017-10-24 05:13] LABS: CREATININE 1.44 mg/dL (0.55-1.02)
[2017-10-24] MEDS: HEPARIN 5,000 UNITS/ML, 1ML SQ SCH ×3 (05:25→21:35)
[2017-10-24 06:45] VITALS: BP 96/57
[2017-10-24] MEDS: IBUPROFEN 800 MG TABLET PO SCH ×2 (08:21→17:18)
[2017-10-24] MEDS: SODIUM CHLORIDE 0.9% 1,000 ML IV SCH ×2 (08:21→19:37)
[2017-10-24] MEDS: OXYcodone IR 5MG TABLET PO PRN ×2 (10:46→17:17)
[2017-10-24] MEDS ORDERED: CEFAZOLIN PMX 1GM/50ML 50 ML IV SCH (13:00)
[2017-10-24] MEDS: CEFOTETAN PMX 1GM/50ML 50 ML IV SCH (13:19)
[2017-10-24 13:30] VITALS: BP 94/59
[2017-10-24 19:44] VITALS: BP 119/76
[2017-10-25] MEDS: CEFOTETAN PMX 1GM/50ML 50 ML IV SCH ×2 (01:38→12:25)
[2017-10-25 02:26] VITALS: BP 107/65
[2017-10-25] MEDS: OXYcodone IR 5MG TABLET PO PRN ×3 (04:39→20:42)
[2017-10-25] MEDS: ONDANSETRON 2MG/ML, 2ML IV PRN (04:39)
[2017-10-25] MEDS: CALCIUM CARBONATE 500 MG TAB.CHEW PO PRN (04:39)
[2017-10-25] MEDS: HEPARIN 5,000 UNITS/ML, 1ML SQ SCH ×3 (04:41→20:41)
[2017-10-25 08:14] VITALS: BP 113/72
[2017-10-25] MEDS: SODIUM CHLORIDE 0.9% 1,000 ML IV SCH ×2 (12:26→16:36)
[2017-10-25 13:39] VITALS: BP 120/69
[2017-10-25 20:19] VITALS: BP 110/66
[2017-10-26] MEDS: OXYcodone IR 5MG TABLET PO PRN ×4 (00:45→19:19)
[2017-10-26] MEDS: CEFOTETAN PMX 1GM/50ML 50 ML IV SCH ×2 (00:49→13:16)
[2017-10-26 02:23] VITALS: BP 122/75
[2017-10-26] MEDS: HEPARIN 5,000 UNITS/ML, 1ML SQ SCH ×3 (04:22→20:36)
[2017-10-26 05:47] LABS: ALBUMIN 1.5 g/dL (3.4-5.0); ANION GAP 7 mmol/L (5-15); CALCIUM 8.9 mg/dL (8.5-10.1); CHLORIDE 106 mmol/L (98-107); CREATININE 1.02 mg/dL (0.55-1.02)
[2017-10-26 06:01] LABS: BASOPHILS # (AUTO) 0.02 x10^3/uL (0-0.1); BASOPHILS % (AUTO) 0 % (0-1); EOSINOPHILS # (AUTO) 0.14 x10^3/uL (0-0.4); EOSINOPHILS % (AUTO) 3 % (1-7); LYMPHOCYTES # (AUTO) 0.69 x10^3/uL (1-3.4); LYMPHOCYTES % (AUTO) 13 % (22-44); MD NO; MEAN CORPUSCULAR HEMOGLOBIN 27.4 pg (27.0-34.8); MEAN CORPUSCULAR HGB CONC 33.4 g/dL (32.4-35.8); MEAN CORPUSCULAR VOLUME 82.1 fL (80-100); MEAN PLATELET VOLUME 7.3 fL (7.4-10.4); MONOCYTES # (AUTO) 0.48 x10^3/uL (0.2-0.8); MONOCYTES % (AUTO) 9 % (2-9); NEUTROPHILS # (AUTO) 4.03 x10^3/uL (1.8-6.8); NEUTROPHILS % (AUTO) 75 % (42-75); PLATELET COUNT 415 x10^3/uL (130-400); RED BLOOD COUNT 3.49 x10^6/uL (3.82-5.3); RED CELL DISTRIBUTION WIDTH 14.4 % (9.6-15.2)
[2017-10-26] MEDS: POTASSIUM CHLORIDE 20 MEQ PACKET PO SCH ×2 (09:15→17:24)
[2017-10-26 09:34] VITALS: BP 119/76
[2017-10-26] MEDS ORDERED: LIDOCAINE 1%-EPI 1:100K, 30ML INFIL ONE (10:00)
[2017-10-26 10:29] VITALS: BP 118/78
[2017-10-26] MEDS ORDERED: MIDAZOLAM 1 MG/ML, 5ML IVPush ONE (10:30)
[2017-10-26 10:33] VITALS: BP 116/73
[2017-10-26] MEDS ORDERED: FENTANYL PF 100 MCG/2ML IV ONE (11:00)
[2017-10-26] MEDS ORDERED: MIDAZOLAM 1 MG/ML, 2ML IVPush ONE (11:00)
[2017-10-26 12:36] VITALS: BP 124/66
[2017-10-26 19:49] VITALS: BP 118/72
[2017-10-27] MEDS: CEFOTETAN PMX 1GM/50ML 50 ML IV SCH ×2 (01:30→12:38)
[2017-10-27] MEDS: OXYcodone IR 5MG TABLET PO PRN (01:40)
[2017-10-27 02:47] VITALS: BP 117/71
[2017-10-27] MEDS ORDERED: ONDANSETRON 4 MG TABLET ONE (02:52)
[2017-10-27] MEDS ORDERED: ONDANSETRON ODT 4 MG PO PRN (03:00)
[2017-10-27] MEDS: HEPARIN 5,000 UNITS/ML, 1ML SQ SCH ×3 (04:40→21:16)
[2017-10-27 06:57] LABS: ANION GAP 7 mmol/L (5-15); CALCIUM 9.5 mg/dL (8.5-10.1); CHLORIDE 104 mmol/L (98-107); CREATININE 0.95 mg/dL (0.55-1.02)
[2017-10-27 08:12] VITALS: BP 133/83
[2017-10-27] MEDS: POTASSIUM CHLORIDE 20 MEQ PACKET PO SCH ×2 (08:44→16:53)
[2017-10-27] MEDS: ACETAMINOPHEN 500 MG TABLET PO PRN ×2 (10:29→21:17)
[2017-10-27 14:06] VITALS: BP 132/84
[2017-10-27 20:27] VITALS: BP 120/82
[2017-10-28] MEDS: CEFOTETAN PMX 1GM/50ML 50 ML IV SCH ×2 (01:23→13:51)
[2017-10-28 01:26] VITALS: BP 123/80
[2017-10-28] MEDS: HEPARIN 5,000 UNITS/ML, 1ML SQ SCH ×2 (04:37→12:28)
[2017-10-28] MEDS: ACETAMINOPHEN 500 MG TABLET PO PRN ×2 (04:37→12:27)
[2017-10-28] MEDS: OXYcodone IR 5MG TABLET PO PRN ×3 (04:37→18:09)
[2017-10-28 07:19] VITALS: BP 111/72
[2017-10-28] MEDS: POTASSIUM CHLORIDE 20 MEQ PACKET PO SCH ×2 (09:17→16:10)
[2017-10-28 12:17] VITALS: BP 110/72
[2017-10-28 18:20] VITALS: BP 111/72
== END 2017-10-28 19:00 | disposition home health service (06) | DRG 329 ==
LOC: OUT 09:56 → 4NOR 15:33 → OUT 15:38 → 4NOR 15:39
PROVIDERS: ADMIT Surgery; ATTEND Surgery
PROC: 0D1B4Z4 Bypass Ileum to Cutaneous, Percutaneous Endoscopic Approach (ICD-10-PCS; 2017-10-19)
PROC: 0DBB4ZZ Excision of Ileum, Percutaneous Endoscopic Approach (ICD-10-PCS; principal; 2017-10-19 12:00)
PROC: 0J980ZZ Drainage of Abdomen Subcutaneous Tissue and Fascia, Open Approach (ICD-10-PCS; 2017-10-26)
DX: K50.912 Crohn's disease, unspecified, with intestinal obstruction (principal); E43 Unspecified severe protein-calorie malnutrition; Z68.25 Body mass index [BMI] 25.0-25.9, adult; Z91.041 Radiographic dye allergy status; Z91.048 Other nonmedicinal substance allergy status
CPT/HCPCS: 36415; 80048; 82040; 82962; 85025; 86850; 86900; 88307; 93005; G0378; J0131; J0690; J1100; J1170; J1644; J2250; J2405; J2704; J3010; J3490; Q0162; C1765; J0735; J1200; J2370; J7030; J7040; J7120; S0074

== ENCOUNTER → 2020-08-18 | Outpatient (CLI) | payer MEDICARE ==
[~2020-08-18] MED LIST changes: -BUPIVACAINE/PF 0.5% ONE; +MELA3TAB PO; -MELA3TAB15 PO; +ONDA4VIA60 IVPush; -ONDA4VIA8 IVPush; -cloniDINE/PF 100 MCG/ML, 10 ML ONE; +remicade
== END | disposition home or self-care (01) ==
LOC: WOUND 14:22
PROVIDERS: ATTEND Internal Medicine
DX: Z43.2 Encounter for attention to ileostomy (principal); K50.90 Crohn's disease, unspecified, without complications; Z90.49 Acquired absence of other specified parts of digestive tract
CPT/HCPCS: G0463

== ENCOUNTER 2020-10-02 10:21 | Outpatient (CLI) | payer MEDICARE | END 2020-10-02 23:59 | disposition home or self-care (01) | LOC: WOUND 10:21 | PROVIDERS: ATTEND Internal Medicine Cardiovascular Disease | DX: Z43.2 Encounter for attention to ileostomy (principal); L25.9 Unspecified contact dermatitis, unspecified cause; K50.90 Crohn's disease, unspecified, without complications; Z90.49 Acquired absence of other specified parts of digestive tract | CPT/HCPCS: G0463 ==